=== PATIENT | male | born 1980 | race Caucasian/White ===

== ENCOUNTER → 2017-03-03 | Outpatient (CLI) | payer OTHER | END | disposition home or self-care (01) | LOC: RAD.S 10:59 | DX: E04.1 Nontoxic single thyroid nodule (principal) ==

== ENCOUNTER → 2017-04-07 | Outpatient (CLI) | payer OTHER | END | disposition home or self-care (01) | LOC: PTH.S 12:53 | DX: Z01.812 Encounter for preprocedural laboratory examination (principal) ==

== ENCOUNTER 2017-04-13 10:50 | Day surgery (SDC) | payer OTHER ==
[~2017-04-13] VITALS: Ht 188 cm; Wt 102.9 kg
--- NOTE | 2017-04-19 08:04 | OR ---
ADMIT: 04/13/2017 RM/LOC: [facility] MR#: [id number] [address] GIOVANNI KAPOOR [address] [place] [address] Operative/Delivery Room Report SEX: M AGE: 36 : 1980 SURGERY DATE: 04/13/2017 SURGEON: Vick Lara MD PREOPERATIVE DIAGNOSES: 1. Left neck mass consistent with adenopathy. 2. Left thyroid nodule. POSTOPERATIVE DIAGNOSES: 1. Left thyroid nodule. 2. Left neck mass consistent with hyperplastic omohyoid muscle and surrounding tissue. OPERATION: Left neck exploration, excisional biopsy of left thyroid nodule, excision of left neck omohyoid muscle mass. ANESTHESIA: General oral endotracheal. BLOOD LOSS: 30 mL. COMPLICATIONS: None. DRAINS: Union. DESCRIPTION OF PROCEDURE: With the patient in supine position under general endotracheal anesthesia, his neck was extended slightly. Anterior neck was prepped with ChloraPrep, allowed 3 minutes to dry. The patient was draped sterilely. An incision was then made in natural skin crease low in the neck through the skin, subcutaneous tissue, and platysma muscle with skin flaps elevated superiorly and inferiorly. This exposed the strap muscles which were in the midline identifying the thyroid isthmus. The left thyroid lobe was exposed by retraction of the strap muscles laterally and blunt dissection was used to separate the capsule from the surrounding tissues. Small vessels were treated with clamping and coagulation. The lobe was palpated, a nodule was present within the substance of the mid superior aspect of the lobe. Electrocautery was used to excise the nodule from the thyroid lobe. The remainder of the left thyroid lobe was left intact. In the posterior aspect, parathyroid bearing tissues and recurrent laryngeal nerves were not exposed. The nodule had a benign appearance. The capsule of the gland was then closed with interrupted simple 3-0 chromic sutures. The left neck was then palpated. The abnormality to palpation was immediately superior to the thyroid lobe. The mass was exposed by blunt dissection the fascial planes and the mass was most consistent with a hyperplastic or enlarged omohyoid muscle. The surrounding tissues extending from the hyoid bone to the clavicle were exposed including the carotid sheath. There were no other abnormal masses. No enlarged lymph nodes identified. The abnormal appearing omohyoid ADMIT: 04/13/2017 RM/LOC: [facility] MR#: [id number] [address] GIOVANNI KAPOOR [address] [place] [address] Operative/Delivery Room Report SEX: M AGE: 36 : 1980 muscle was transected and specimen sent for histologic examination. The wound was irrigated with saline. Hemostasis was assured by clamping and coagulation. A Bhavin drain was placed in the left neck and brought out the midline strap muscles and midline incision. The drain was not sutured to the skin. The wound was closed in layers with 3-0 chromic catgut to the deep muscularis layer, inverted simple 3-0 catgut to the platysmal layer, and a running horizontal mattress suture to the skin with two interrupted simple sutures placed on either side of the Union drain. A thyroid dressing was applied. The operation was completed. The patient tolerated the procedure well. He emerged from general anesthesia in the operating room, was extubated in the operating room, and transferred to the recovery room in good condition. He experienced no respiratory distress or stridor. Vick Lara MD/ ana cristina JOB #: [id number] CC: Vick Lara, Attending Physician Tommy Oviedo, Family Physician
--- NOTE | 2017-04-19 08:04 | HP ---
ADMIT: 04/13/2017 RM/LOC: [facility] MR#: [id number] [address] GIOVANNI KAPOOR [address] [place] [address] Pre-OP History and Physical SEX: M AGE: 36 : 1980 DATE OF SERVICE: HISTORY OF PRESENT ILLNESS: Giovanni is 36 years old. He is admitted at this time for excisional biopsy of left neck mass consistent with enlarged lymph node, and excisional biopsy of left thyroid nodules. The neck mass was first identified on physical examination, December of 2016, when he presented for nasal and sinus congestion, and was identified as having sinus infection. Medical treatment included antibiotics, oral and topical corticosteroids and antihistamines. Sinus symptoms and sinus infection appearance has resolved, but the left neck mass persisted. Evaluation of the mass included an ultrasound which shows a solid appearing soft tissue mass in superior aspect of left thyroid lobe and also a nodule within the left thyroid lobe. The nodule is relatively small at 8 mm and involves the mid pole of the left thyroid lobe. The rationale for excisional biopsy has been discussed with Giovanni, this will involve removal of both the left neck mass and the thyroid nodule. He is in acceptance of the recommendations and the risks, and he is admitted for general anesthesia. MEDICATIONS: Prior medications include: 1. Durezol eyedrops. 2. Zyrtec. 3. Nasacort AQ. ALLERGIES: NO MEDICINES KNOWN. PAST MEDICAL HISTORY: Urethral procedure. REVIEW OF SYSTEMS: Positive for lower respiratory bronchoconstriction. No known cardiovascular, GI, , hematologic, or neurologic disorders. SOCIAL HISTORY: He drinks caffeine. He also drinks alcohol and does use tobacco. FAMILY HISTORY: No known anesthetic complications. No coagulopathies. PHYSICAL EXAMINATION: GENERAL: A 36-year-old, 6 feet 2 inches, weight 230 pounds. HEENT: Pupils are equal. Conjunctivae clear. Ear canals, TMs, and middle ears clear. Nose, airway patent. No mucus, purulence, polyps, or lesions. There is mild congestion. Mouth and pharynx clear. No exudate. Tonsils are normal in size at 2+, non exudative. NECK: Left neck mass approximately 2 cm in diameter, superior aspect of left thyroid lobe, mobile within the deep neck structures. There are no other neck masses or adenopathy palpable. ADMIT: 04/13/2017 RM/LOC: [facility] MR#: [id number] [address] GIOVANNI KAPOOR [address] [place] [address] Pre-OP History and Physical SEX: M AGE: 36 : 1980 LUNGS: Clear. HEART: Rhythm regular. EXTREMITIES: Normal. IMPRESSION: 1. Left neck mass consistent with enlarged lymph node at level 3. 2. Left thyroid nodule, 8 mm. PLAN: 1. Left neck exploration with removal of soft tissue mass for histologic diagnosis. 2. Excisional biopsy, left thyroid nodule. Vick Lara MD/ ana cristina JOB #: [id number] CC: Vick Lara, Attending Physician Tommy Oviedo, Family Physician
== END 2017-04-13 13:05 | disposition home or self-care (01) ==
LOC: EDSTATUS 10:50 → SSS 10:50
PROC: 0GBG0ZZ Excision of Left Thyroid Gland Lobe, Open Approach (ICD-10-PCS; principal; 2017-04-13)
DX: E04.1 Nontoxic single thyroid nodule (principal); J45.909 Unspecified asthma, uncomplicated; M19.90 Unspecified osteoarthritis, unspecified site; Z79.899 Other long term (current) drug therapy; Z98.890 Other specified postprocedural states; Z72.0 Tobacco use